=== PATIENT | female | born 1955 | race Hispanic/Latino ===

== ENCOUNTER 2018-12-25 15:56 | Emergency (ER) | payer MEDICARE, OTHER ==
[~2018-12-25] VITALS: Ht 154.9 cm; Wt 74.9 kg
[~2018-12-25 15:56] MED LIST: ASA81 MG PO; CALCIUM500 M2 PO; DICLOFENAC PO; LEVOTHROID100 MC1 PO; Z.0.ALENDRONATE SOD7 PO; Z.0.FAMOTIDINE20 MG PO; Z.0.FENOFIBRATE160 M PO; Z.0.GABAPENTIN300 MG PO; Z.0.LOSARTAN POTASS2 PO; Z.0.METOPROLOL TART2 PO; Z.0.PLAVIX75 MG PO; Z.0.SIMVASTATIN40 MG PO
[2018-12-25] MEDS ORDERED: LANTUS 3ML100 UNITS/ SC (16:29)
[2018-12-25] MEDS ORDERED: BRILINTA90 MG (16:29)
[2018-12-25] MEDS ORDERED: CLONIDINE HCL0.1 MG PO (16:29)
[2018-12-25] MEDS ORDERED: LISINOPRIL2.5 MG PO (16:29)
[2018-12-25] MEDS ORDERED: ISOSORBIDE MONO20 MG PO (16:29)
[2018-12-25] MEDS ORDERED: ALPRAZOLAM0.25 MG PO (16:29)
[2018-12-25] MEDS ORDERED: FOLIC ACID1 MG PO (16:29)
[2018-12-25] MEDS ORDERED: CARVEDILOL3.125 MG PO (16:29)
[2018-12-25] MEDS ORDERED: GLIMEPIRIDE2 MG PO (16:29)
[2018-12-25] MEDS ORDERED: ATORVASTATIN CA10 MG PO (16:29)
[2018-12-25] MEDS ORDERED: LASIX20 MG PO (16:29)
[2018-12-25] MEDS ORDERED: CLONIDINE HCL 0.1 MG TAB PO ONE (16:30)
[2018-12-25] MEDS ORDERED: ACETAMINOPHEN 325 MG TAB PO ONE (16:30)
[2018-12-25] MEDS ORDERED: CLONIDINE HCL 0.1 MG TAB ONE (16:36)
--- NOTE | 2018-12-25 17:39 | NUR ---
BP rechecked 1 hr after clonidine. BP 204/74, HR 54. Pt. requesting to take her home nifidepine stating she normally takes it around this time. Per felix Rajan for pt. to take home nefidipine
[2018-12-25 18:01] VITALS: BP 204/74
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
== END 2018-12-25 18:02 | disposition home or self-care (01) ==
LOC: FSED 15:56
DX: S00.11XA Contusion of right eyelid and periocular area, initial encounter (principal); W01.198A Fall on same level from slipping, tripping and stumbling with subsequent striking against other object, initial encounter; Y92.830 Public park as the place of occurrence of the external cause; I10 Essential (primary) hypertension; E11.9 Type 2 diabetes mellitus without complications; I25.10 Atherosclerotic heart disease of native coronary artery without angina pectoris
CPT/HCPCS: 70486; 99283

== ENCOUNTER → 2019-06-21 | Outpatient (CLI) | payer OTHER ==
[~2019-06-21] MED LIST changes: +ALPRAZOLAM0.25 MG PO; +ATORVASTATIN CA10 MG PO; +BRILINTA90 MG; +CARVEDILOL3.125 MG PO; +CEFDINIR300 MG PO; +CLONIDINE HCL0.1 MG PO; +FOLIC ACID1 MG PO; +GLIMEPIRIDE2 MG PO; +ISOSORBIDE MONO20 MG PO; +LANTUS 3ML100 UNITS/ SC; +LASIX20 MG PO; +LISINOPRIL2.5 MG PO; +ULTRACET TABLE1 EACH PO
--- NOTE | 2019-06-21 13:59 | Diagnostic Imaging Report ---
EXAM: Renal Ultrasound INDICATION: ^[id number] ^1107 ^CYST OF KIDNEY COMPARISON: CT abdomen and pelvis of 03/28/2010 TECHNIQUE: Transverse and longitudinal images of the kidneys and bladder were obtained. FINDINGS: Right Kidney: Length: 11.9 cm Appearance: Normal echogenicity. Collecting system: No hydronephrosis Stones: 4 mm mid pole echogenic focus with posterior shadowing. Cyst/Mass: Lower pole 3.5 x 2.7 x 2.0 cm cyst with internal calcifications. Left Kidney: Length: 12.5 cm Appearance: Normal echogenicity. Collecting system: No hydronephrosis Stones: None Cyst/Mass: None Bladder: No mass or calculi. No ureteral jets visualized. IMPRESSION: Right lower pole exophytic 3.5 x 2.7 x 2.0 cm hypoechoic cyst with internal calcifications corresponds with finding on the CT abdomen and pelvis of 03/28/2010 at which point it measured up to 3.2 cm. Left midpole 4 mm nonobstructive renal calculus. Signed by: Rosario Moore MD on 06/21/2019 1:56 PM
== END ==
LOC: US 10:41
PROVIDERS: ATTEND Urology
DX: N28.1 Cyst of kidney, acquired (principal)
CPT/HCPCS: 76770

== ENCOUNTER 2019-06-22 20:07 | Emergency (ER) | payer OTHER ==
[~2019-06-22] VITALS: Ht 154.9 cm; Wt 72.6 kg
[~2019-06-22 20:07] MED LIST changes: -CEFDINIR300 MG PO; -ULTRACET TABLE1 EACH PO
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
[2019-06-22] MEDS ORDERED: SODIUM CHLORIDE 0.9% 1000ML 1,000 ML IV SCH (21:30)
--- NOTE | 2019-06-22 21:53 | Diagnostic Imaging Report ---
EXAMINATION: CXR 2 VIEW - HOPD INDICATION: Cough. COMPARISON: None FINDINGS: TUBES and LINES: None. LUNGS: Lungs are well inflated. Mild patchy opacity at the right lung base, likely atelectasis. There is no evidence of lobar pneumonia or pulmonary edema. Mild bronchial wall thickening. PLEURA: No pleural effusion or pneumothorax. HEART AND MEDIASTINUM: The cardiomediastinal silhouette is unremarkable. Coronary stents. BONES AND SOFT TISSUES: No acute osseous abnormality. Diffuse osteopenia. UPPER ABDOMEN: No free air under the diaphragm. IMPRESSION: Mild bronchial wall thickening which may reflect bronchitis in the setting of cough. Signed by: Dr. Silke Bruce MD on 06/22/2019 9:50 PM
[2019-06-22] MEDS ORDERED: CEFTRIAXONE SOD 1 GM/NS 50 ML 50 ML IV ONE (23:00)
[2019-06-22] MEDS ORDERED: CEFTRIAXONE SOD 1 GM VIAL ONE (23:05)
[2019-06-22] MEDS ORDERED: SODIUM CHLORIDE 0.9% 1000ML 1,000 ML ONE (23:06)
[2019-06-22] MEDS ORDERED: CEFDINIR300 MG PO (23:46)
[2019-06-22] MEDS ORDERED: ULTRACET TABLE1 EACH PO (23:48)
[2019-06-23 02:43] VITALS: BP 155/78
== END 2019-06-23 00:01 | disposition home or self-care (01) ==
LOC: FSED 20:07
DX: J20.8 Acute bronchitis due to other specified organisms (principal); J30.9 Allergic rhinitis, unspecified; E11.65 Type 2 diabetes mellitus with hyperglycemia; I10 Essential (primary) hypertension; Z88.1 Allergy status to other antibiotic agents; Z88.5 Allergy status to narcotic agent; Z88.8 Allergy status to other drugs, medicaments and biological substances; Z79.4 Long term (current) use of insulin; I25.10 Atherosclerotic heart disease of native coronary artery without angina pectoris; Z95.5 Presence of coronary angioplasty implant and graft; E03.9 Hypothyroidism, unspecified
CPT/HCPCS: 71046; 80053; 81003; 82553; 83518; 83880; 84484; 85025; 87400; 93005; 96374; 99284; J0696; J7030